=== PATIENT | male | born 1980 | race Caucasian/White ===

== ENCOUNTER 2021-08-16 01:49 | Inpatient (IN) | payer SELFPAY ==
[~2021-08-16] VITALS: Ht 185.4 cm; Wt 136.1 kg
[2021-08-16] VITALS (7 sets, daily range): BP systolic 124–144; BP diastolic 69–84
[2021-08-16] MEDS ORDERED: SODIUM CHLORIDE 0.9% 1000ML 1,000 ML IV STA (01:54)
[2021-08-16] MEDS ORDERED: ONDANSETRON HCL INJ 2MG/ML 2ML 2 MG/ML VIAL IV STA (02:01)
[2021-08-16] MEDS ORDERED: Morphine 4mg Syringe 4 MG/ML INJ IV STA (02:01)
[2021-08-16 02:13] LABS: BASOPHILS % 0.2 % (0.0-1.0); EOSINOPHILS # (AUTO) 0.1 (0.0-0.4); EOSINOPHILS % 1.2 % (0.0-6.0); HEMATOCRIT 43.5 % (38.2-49.6); HEMOGLOBIN 14.7 g/dL (14.0-18.0); LYMPHOCYTES # (AUTO) 1.8 (1.0-3.2); LYMPHOCYTES % 20.6 % (18.0-39.1); MEAN CORPUSCULAR HEMOGLOBIN 29.9 pg (28-32); MEAN CORPUSCULAR HGB CONC 33.8 g/dL (31-35); MEAN CORPUSCULAR VOLUME 88.6 fL (81-99); MONOCYTES # (AUTO) 1.2 (0.2-0.8); MONOCYTES % 13.6 % (4.4-11.3); NEUTROPHILS # (AUTO) 5.5 (2.1-6.9); PLATELET COUNT 294 x10e3/uL (140-360); RED BLOOD COUNT 4.91 x10e6/uL (4.3-5.7); RED CELL DISTRIBUTION WIDTH 12.2 % (11.7-14.4)
[2021-08-16 02:37] LABS: ALBUMIN 3.5 g/dL (3.5-5.0); ALBUMIN/GLOBULIN RATIO 0.7 (0.8-2.0); ANION GAP 14.1 mmol/L (8-16); CALCIUM 8.9 mg/dL (8.4-10.2); CREATININE, SERUM 1.08 mg/dL (0.72-1.25); POTASSIUM 4.1 mmol/L (3.5-5.1)
[2021-08-16] MEDS ORDERED: ONDANSETRON HCL INJ 2MG/ML 2ML 2 MG/ML VIAL IV PRN (04:00)
[2021-08-16] MEDS: SODIUM CHLORIDE 0.9% 1000ML 1,000 ML IV SCH ×2 (05:11→12:44)
[2021-08-16] MEDS ORDERED: IOPAMIDOL 370 MG/ML 100 ML INFUS..BTL INJ ONE (06:31)
[2021-08-16] MEDS: Morphine 4mg Syringe 4 MG/ML INJ IV PRN ×3 (07:35→18:30)
[2021-08-16] MEDS: METRONIDAZOLE 500MG/NS 100ML 100 ML IV SCH (18:30)
[2021-08-16] MEDS: ACETAMINOPHEN 325 MG TAB PO PRN (21:23)
[2021-08-17] VITALS: BP 130/79
[2021-08-17] MEDS: SODIUM CHLORIDE 0.9% 1000ML 1,000 ML IV SCH ×3 (00:40→12:37)
[2021-08-17] MEDS: MAGNESIUM/ALUMINUM/SIMETHICONE 30 ML UDC PO SCH ×4 (00:42→18:09)
[2021-08-17] MEDS: METRONIDAZOLE 500MG/NS 100ML 100 ML IV SCH ×3 (01:30→17:01)
[2021-08-17 04:00] VITALS: BP 126/84
[2021-08-17] MEDS: Morphine 4mg Syringe 4 MG/ML INJ IV PRN ×2 (06:36→10:36)
[2021-08-17 07:48] LABS: BASOPHILS % 0.6 % (0.0-1.0); EOSINOPHILS # (AUTO) 0.2 (0.0-0.4); EOSINOPHILS % 3.1 % (0.0-6.0); HEMATOCRIT 38.9 % (38.2-49.6); HEMOGLOBIN 13.3 g/dL (14.0-18.0); LYMPHOCYTES # (AUTO) 1.9 (1.0-3.2); LYMPHOCYTES % 25.9 % (18.0-39.1); MEAN CORPUSCULAR HEMOGLOBIN 30.3 pg (28-32); MEAN CORPUSCULAR HGB CONC 34.2 g/dL (31-35); MEAN CORPUSCULAR VOLUME 88.6 fL (81-99); NEUTROPHILS % 55.7 % (38.7-80.0); PLATELET COUNT 274 x10e3/uL (140-360); RED BLOOD COUNT 4.39 x10e6/uL (4.3-5.7)
[2021-08-17 08:00] VITALS: BP 133/85
[2021-08-17 08:09] LABS: ALBUMIN 3.1 g/dL (3.5-5.0); ALBUMIN/GLOBULIN RATIO 0.8 (0.8-2.0); ANION GAP 12.6 mmol/L (8-16); CALCIUM 8.3 mg/dL (8.4-10.2); CREATININE, SERUM 1.06 mg/dL (0.72-1.25); POTASSIUM 3.6 mmol/L (3.5-5.1)
[2021-08-17 08:11] VITALS: BP 133/85
[2021-08-17 11:38] VITALS: BP 133/95
[2021-08-17] MEDS: ACETAMINOPHEN 325 MG TAB PO PRN (12:37)
[2021-08-17 20:00] VITALS: BP 132/73
[2021-08-18] VITALS: BP 147/102
[2021-08-18] MEDS: METRONIDAZOLE 500MG/NS 100ML 100 ML IV SCH ×2 (01:40→08:30)
[2021-08-18 04:00] VITALS: BP 137/77
[2021-08-18] MEDS: MAGNESIUM/ALUMINUM/SIMETHICONE 30 ML UDC PO SCH ×2 (04:50)
[2021-08-18] MEDS: Morphine 4mg Syringe 4 MG/ML INJ IV PRN (04:51)
[2021-08-18] MEDS: SODIUM CHLORIDE 0.9% 1000ML 1,000 ML IV SCH ×2 (07:06→07:49)
[2021-08-18 08:00] VITALS: BP 146/92
[2021-08-18 08:04] VITALS: BP 146/92
[2021-08-18] MEDS: ACETAMINOPHEN 325 MG TAB PO PRN (08:27)
== END 2021-08-18 09:50 | disposition home or self-care (01) | DRG 390 ==
LOC: ER 01:55 → ERHOLD 04:12 → MED/SURG 04:51
DX: K56.609 Unspecified intestinal obstruction, unspecified as to partial versus complete obstruction (principal); K52.9 Noninfective gastroenteritis and colitis, unspecified; E66.01 Morbid (severe) obesity due to excess calories; Z68.39 Body mass index [BMI] 39.0-39.9, adult; Z20.822 Contact with and (suspected) exposure to COVID-19
CPT/HCPCS: 36415; 74022; 74177; 80053; 83690; 85025; 93005; 99284; J2270; J2405; J2543; J7030; Q9967; U0002